=== PATIENT | male | born 1980 | race African-American/Black ===

== ENCOUNTER 2019-05-02 23:48 | Emergency (ER) | payer MEDICAID ==
[~2019-05-02] VITALS: Ht 175.3 cm; Wt 86.7 kg
[2019-05-02 23:50] VITALS: BP 106/87
[2019-05-03] MEDS ORDERED: ONDANSETRON 2MG/ML, 2ML ONE (00:14)
[2019-05-03] MEDS ORDERED: LORazepam 2 MG/ML, 1ML ONE (00:14)
[2019-05-03] MEDS ORDERED: THIAMINE 100 MG/ML, 2ML ONE (00:14)
--- NOTE | 2019-05-03 00:22 | NUR ---
Pt presents to ed c/o "i think i have alcohol poisoning." States drank 30 beers and a pint of hard etoh in last 24 hours. States recent relapse after year of sobriety. Pt denies hx of sz w/ d/t. Pt has intermittent spastic episodes of upper body and appears to be mildly anxious. Denies any relevant med hx. Iv initiated and medicated per aug.
[2019-05-03] MEDS ORDERED: LORazepam 2 MG/ML, 1ML IVPush ONE (00:30)
[2019-05-03] MEDS ORDERED: THIAMINE 100 MG/ML, 2ML IM ONE (00:30)
[2019-05-03] MEDS ORDERED: SODIUM CHLORIDE 0.9% 1,000ML IVBOLUS ONE (00:30)
[2019-05-03] MEDS ORDERED: ONDANSETRON 2MG/ML, 2ML IVPush ONE (00:30)
[2019-05-03 00:36] LABS: BASOPHILS # (AUTO) 0.09 x10^3/uL (0-0.1); BASOPHILS % (AUTO) 1 % (0-1); EOSINOPHILS # (AUTO) 0.06 x10^3/uL (0-0.4); EOSINOPHILS % (AUTO) 1 % (1-7); LYMPHOCYTES # (AUTO) 2.61 x10^3/uL (1-3.4); LYMPHOCYTES % (AUTO) 33 % (22-44); MD NO; MEAN CORPUSCULAR HEMOGLOBIN 32.9 pg (27.5-34.5); MEAN CORPUSCULAR HGB CONC 33.5 g/dL (33.2-36.2); MEAN CORPUSCULAR VOLUME 98.3 fL (81-97); MONOCYTES # (AUTO) 0.81 x10^3/uL (0.2-0.8); MONOCYTES % (AUTO) 10 % (2-9); NEUTROPHILS # (AUTO) 4.43 x10^3/uL (1.8-6.8); NEUTROPHILS % (AUTO) 55 % (42-75); PLATELET COUNT 213 x10^3/uL (130-400); RED BLOOD COUNT 4.76 x10^6/uL (4.38-5.82); RED CELL DISTRIBUTION WIDTH 14.2 % (9.4-14.8)
[2019-05-03 00:41] LABS: ALANINE AMINOTRANSFERASE 44 U/L (12-78); ALBUMIN 3.4 g/dL (3.4-5.0); ANION GAP 8 mmol/L (5-15); CALCIUM 7.7 mg/dL (8.5-10.1); CHLORIDE 106 mmol/L (98-107); CREATININE 0.95 mg/dL (0.7-1.3)
[2019-05-03 00:43] LABS: ALKALINE PHOSPHATASE 76 U/L (45-117); BILIRUBIN,TOTAL 0.4 mg/dL (0.2-1.0); SALICYLATE LEVEL < 1.7 mg/dL (2.8-20.0); TOTAL PROTEIN 7.2 g/dL (6.4-8.2)
--- NOTE | 2019-05-03 00:52 | NUR ---
RN to bedside, patient resting comfortably. Provided warm blanket, patients parents sitting at bedside. No signs or symptoms of distress and patient denies any needs after warm blanket provided. Awaiting labs and plan of care reassessment.
== END 2019-05-03 01:23 | disposition home or self-care (01) ==
LOC: ED 05-03 01:21
DX: F10.120 Alcohol abuse with intoxication, uncomplicated (principal); R11.10 Vomiting, unspecified; Z87.891 Personal history of nicotine dependence; Z72.89 Other problems related to lifestyle
CPT/HCPCS: 36415; 80053; 80307; 85025; 96361; 96372; 96374; 96375; 99283; J2060; J2405; J3411; J7030